=== PATIENT | male | born 1985 | race Caucasian/White ===

== ENCOUNTER 2019-02-19 13:16 | Emergency (ER) | payer SELFPAY ==
[~2019-02-19] VITALS: Ht 177.8 cm; Wt 86.4 kg
[2019-02-19 13:26] VITALS: Ht 177.8 cm; Wt 86.4 kg
[2019-02-19] MEDS ORDERED: VIBRAMYCIN 100100 MG PO (14:30)
[2019-02-19] MEDS ORDERED: VOLTAREN75 MG PO (14:30)
[2019-02-19 15:07] VITALS: BP 121/84
== END 2019-02-19 15:08 | disposition home or self-care (01) ==
LOC: D.ER 13:16
DX: L03.116 Cellulitis of left lower limb (principal)